=== PATIENT | female | born 1965 | race Caucasian/White ===

== ENCOUNTER → 2018-03-21 21:23 | Outpatient (CLI) | payer OTHER, SELFPAY ==
[2018-03-21 23:37] LABS: Chlamydia Trachomatis by PCR Negative (Negative); Neisserai gonorrhoeae by PCR Negative (Negative); Probe Check PASS; Sample Adequacy Control PASS; Specimen Processing Control PASS
== END ==
PROVIDERS: Visit Provider Nurse Practitioner
DX: Z20.2 Contact with and (suspected) exposure to infections with a predominantly sexual mode of transmission (principal)
CPT/HCPCS: 87491; 87591

== ENCOUNTER → 2019-06-18 21:10 | Outpatient (CLI) | payer OTHER, SELFPAY ==
[2019-06-18 16:57] VITALS: BMI 27.2
[2019-06-18 23:03] LABS: Chlamydia Trachomatis by PCR Negative (Negative); Neisserai gonorrhoeae by PCR Negative (Negative); Probe Check PASS; Sample Adequacy Control PASS; Specimen Processing Control PASS
== END ==
PROVIDERS: Referring Provider Nurse Practitioner; Visit Provider Nurse Practitioner
DX: N89.8 Other specified noninflammatory disorders of vagina (principal)
CPT/HCPCS: 87491; 87591

== ENCOUNTER → 2021-01-01 09:54 | Outpatient (CLI) | payer BC, SELFPAY ==
[2020-05-19 19:33] VITALS: BMI 27.9
[2021-01-01 12:30] LABS: Erythrocyte Sedimentation Rate 2 mm/hr (0-30)
[2021-01-01 12:33] LABS: Absolute Lymphocyte Count 1.34 X10^3/uL (0.83-4.51); Absolute Neutrophil Count 2.5 X10^3/uL (2.0-7.7); Basophil# 0.03 X10^3/uL; Basophil% 0.7 % (0-1); Eosinophil# 0.13 X10^3/uL; Eosinophils% 2.9 % (0-5); Hematocrit 42.7 % (37-47); Hemoglobin 13.7 g/dL (12.0-15.0); Lymphocyte # 1.34 X10^3/ul (0.83-4.51); Mean Corp Hgb Conc 32.1 g/dL (32-36); Mean Corpuscular Hgb 28.1 pg (27.0-32.0); Mean Corpuscular Volume 87.7 fL (81-99); Mean Platelet Vol. 12.2 fl (6.2-12.0); Monocyte# 0.43 X10^3/uL; Monocyte% 9.6 % (0-10); NRBC Flagged by Analyzer 0 % (0-5); Neutrophil # 2.52 X10^3/uL (2.7-7.7); Neutrophil % 56.6 % (47-70); Platelet Count 214 K/mm3 (150-450); RBC Distribution Width SD 41.9 fl (35.1-43.9); Red Blood Count 4.87 M/mm3 (4.2-5.4); White Blood Count 4.5 K/mm3 (4.4-11.0)
[2021-01-01 12:35] LABS: Color, Urine Straw (Yellow); Glucose, Dipstick Normal (Normal); Ketone-Dipstick Negative (Negative); Leukocyte Esterase-Dipstick Negative /ul (Negative); Nitrite-Dipstick Negative (Negative); Occult Blood-Urine Negative /ul (Negative); Protein-Dipstick Negative (Negative); Urine Bilirubin Dipstick Negative (Negative); Urine Clarity Clear (Clear); Urine Urobilinogen Normal (Normal)
[2021-01-01 12:49] LABS: Protein, Urine (Random) < 6.0 mg/dL (<11.9)
[2021-01-01 13:08] LABS: ALB/GLOB Ratio 1.3 RATIO (0.9-2.4); AST(SGOT) 22 U/L (15-37); Alanine Aminotransfer ALT/SGPT 38 U/L (13-56); Albumin, Serum 4.3 g/dL (3.2-5.0); Alkaline Phosphatase 103 U/L (45-117); Anion Gap 6 (5-15); BUN 11 mg/dL (7-18); BUN/Creat Ratio 12.7 RATIO (10-20); CRP < 2.90 mg/L (0.0-3.0); Calcium,Total 9.3 mg/dL (8.5-10.1); Chloride 105 mmol/L (98-107); Creatinine, Serum 0.87 mg/dL (0.55-1.02); EST Glomerular Filtration Rate 72 mL/min (>60); Est Glom Filt Rate - Afr Amer 87 mL/min (>60); Globulin 3.4 g/dL (2.2-4.2); Glucose 93 mg/dL (74-106); Potassium 3.9 mmol/L (3.5-5.1); Protein, Total 7.7 g/dL (6.4-8.2); Rheumatoid Factor < 10.0 IU/mL (<15); Sodium Level 139 mmol/L (136-145)
[2021-01-01 13:34] LABS: Hepatitis B Surface Antibody Non-Reactive; Hepatitis B Surface Antigen Non-Reactive (Nonreactive); Hepatitis C Antibody Non-Reactive (Nonreactive)
[2021-01-02 14:08] LABS: Anti-Centromere B Ab <0.2 AI (0.0-0.9); Anti-Jo <0.2 AI (0.0-0.9); Anti-Scleroderma-70 AB <0.2 AI (0.0-0.9); RNP Ab <0.2 AI (0.0-0.9); SJOGREN'S Anti-SS-A test < 0.2 AI (0.0-0.9); SJOGREN'S Anti-SS-B test < 0.2 AI (0.0-0.9); Smith Ab <0.2 AI (0.0-0.9)
[2021-01-03 10:04] LABS: ANTINUCLEAR ANTIBODIES DIRECT Negative (Negative); Anti-dsDNA Ab <1 IU/mL (0-9)
[2021-01-06 04:14] LABS: Complement C3 143 mg/dL (82-167)
[2021-01-06 11:38] LABS: CCP IgG Antibodies 5 units (0-19)
== END ==
PROVIDERS: PCP Family Medicine; Referring Provider Internal Medicine Rheumatology; Visit Provider Internal Medicine Rheumatology
DX: M06.4 Inflammatory polyarthropathy (principal); G43.909 Migraine, unspecified, not intractable, without status migrainosus; A60.00 Herpesviral infection of urogenital system, unspecified; I10 Essential (primary) hypertension; E78.5 Hyperlipidemia, unspecified; K21.9 Gastro-esophageal reflux disease without esophagitis; F41.9 Anxiety disorder, unspecified
CPT/HCPCS: 36415; 80053; 81002; 82570; 84156; 85025; 85652; 86038; 86140; 86160; 86200; 86225; 86235; 86431; 86706; 86803; 87340

== ENCOUNTER → 2023-09-25 | Outpatient (CLI) | payer BC, SELFPAY ==
--- OUTSIDE RECORDS SUMMARY | 2023-09-25 23:11 | XMS RPT_ITS | CCD ---
Author Name Unknown Address [address] [place] [address] Organization [facility] Care Team Providers Care Group Segment Consultant Name Role Phone Susan Rosado Primary Care Provider SUSAN ROSADO Attending Unavailable SUSAN ROSADO Referring Unavailable LAKSHMI, SUSAN Primary Care Unavailable LAKSHMI, SUSAN Referring Unavailable LAKSHMI, SUSAN Primary Care Unavailable DEEPALI MARTÍNEZ Attending Unavailable DEEPALI MARTÍNEZ Referring Unavailable LAKSHMI, SUSAN Primary Care Unavailable LAKSHMI, SUSAN Attending Unavailable LAKSHMI, SUSAN Primary Care Unavailable LAKSHMI, SUSAN Attending Unavailable LAKSHMI, SUSAN Primary Care Unavailable LAKSHMI, SUSAN Attending Unavailable LAKSHMI, SUSAN Primary Care Unavailable LAKSHMI, SUSAN Attending Unavailable LAKSHMI, SUSAN Primary Care Unavailable Allergies Allergy Classification Reported Allergen(s) Allergy Type Date of Onset Reaction(s) Facility (18 sources) Ampicillin Drug Allergy 12-26-2014 [place], [place] (18 sources) Ibuprofen Drug Allergy 12-26-2014 Nausea Only [place] Medications Current Medications Medication Drug Class(es) Dates Sig (Normalized) Sig (Original) naproxen sodium 220 mg oral tablet (1 source) Nonsteroidal Anti-inflammatory Drug take 1 tablet by mouth twice daily at mealtime naproxen sodium (ANAPROX) 220 MG tablet Take 220 mg by mouth 2 times daily (with meals) 0 Active omeprazole 40 mg delayed release oral capsule (15 sources) Proton Pump Inhibitor Start: 02-09-2023 End: 06-19-2023 take 1 capsule by mouth once daily before breakfast omeprazole (PriLOSEC) [address] capsule Take 1 capsule (40 mg) by mouth every morning (before breakfast). 30 capsule 2 06/19/2023 Active rosuvastatin calcium 10 mg oral tablet (19 sources) HMG-CoA Reductase Inhibitor Start: 10-21-2022 End: 04-19-2023 take 1 tablet by mouth once daily rosuvastatin (Crestor) 10 MG tablet Indications: Mixed hyperlipidemia TAKE 1 TABLET BY MOUTH ONCE DAILY 90 tablet 1 04/19/2023 Active Problems Active Problems Problem Classification Problem Date Documented Da te Episodic/Chronic Anxiety disorders (20 sources) Anxiety; Translations: [Anxiety disorder, unspecified] Onset: 03-28-2018 03-28-2018 Chronic Disorders of lipid metabolism (20 sources) Mixed hyperlipidemia; Translations: [Mixed hyperlipidemia] Onset: 03-06-2017 03-06-2017 Chronic Essential hypertension (20 sources) Essential hypertension; Translations: [Essential (primary) hypertension] Onset: 05-11-2022 05-11-2022 Chronic Headache; including migraine (20 sources) Migraine; Translations: [Migraine, unspecified, not intractable, without status migrainosus] Onset: 01-22-2015 01-22-2015 Chronic Intestinal infection (2 sources) Viral intestinal infection, unspecified; Translations: [Viral intestinal infection, unspecified] Onset: 09-12-2023 Episodic Mood disorders (20 sources) Moderate major depression, single episode; Translations: [Recurrent major depressive episodes] Onset: 03-28-2018 Resolved: 05-11-2022 03-28-2018 Chronic Nonmalignant breast conditions (9 sources) Lump in upper outer quadrant of left breast; Translations: [Unspecified lump in the left breast, upper outer quadrant] Onset: 01-05-2023 01-05-2023 Episodic Other gastrointestinal disorders (2 sources) Other constipation; Translations: [Other constipation] Onset: 04-24-2022 Episodic Other screening for suspected conditions (not mental disorders or infectious disease) (3 sources) Patient encounter status; Translations: [Encounter for screening for diabetes mellitus] Onset: 08-24-2023 08-24-2023 Episodic Other skin disorders (7 sources) Inflamed seborrheic keratosis; Translations: [Inflamed seborrheic keratosis] Onset: 08-24-2023 08-24-2023 Episodic Other skin disorders (2 sources) Inflamed seborrheic keratosis; Translations: [Inflamed seborrheic keratosis] Onset: 08-24-2023 Episodic Other upper respiratory disease (18 sources) Allergic rhinitis due to pollen; Translations: [Allergic rhinitis due to pollen] Onset: 03-06-2017 03-06-2017 Chronic Unclassified (2 sources) Procedure; Translations: [Procedure] Onset: 08-30-2023 Unclassified (2 sources) Medication Check; Translations: [Medication Check] Onset: 02-09-2023 Unclassified (2 sources) Health Maintenance; Translations: [Health Maintenance] Onset: 02-09-2023 Viral infection (20 sources) Herpes simplex type 2 infection; Translations: [Herpesviral infection, unspecified] Onset: 11-13-2019 11-13-2019 Episodic Past or Other Problems Problem Classification Problem Date Documented Da te Episodic/Chronic Hemorrhoids (18 sources) Thrombosed external hemorrhoids; Translations: [Perianal venous thrombosis] Onset: 01-25-2017 01-25-2017 Episodic Inflammatory diseases of female pelvic organs (17 sources) Bacterial vaginosis; Translations: [Acute vaginitis] Onset: 11-13-2019 Resolved: 05-11-2022 11-13-2019 Episodic Mood disorders (13 sources) Mood disorders Onset: 02-09-2023 Resolved: 08-23-2023 02-09-2023 Neoplasms of unspecified nature or uncertain behavior (18 sources) Neoplasm of uncertain behavior of head; Translations: [Neoplasm of uncertain behavior of other specified sites] Onset: 01-22-2015 01-22-2015 Episodic Other female genital disorders (18 sources) Cervical intraepithelial neoplasia grade 1; Translations: [Low grade squamous intraepithelial lesion on cytologic smear of cervix (LGSIL)] Onset: 04-15-2015 07-22-2015 Episodic Other gastrointestinal disorders (19 sources) Chronic constipation; Translations: [Other constipation] Onset: 03-12-2015 03-12-2015 Episodic Other non-traumatic joint disorders (16 sources) Joint stiffness; Translations: [Stiffness of unspecified joint, not elsewhere classified] Onset: 09-21-2020 09-21-2020 Episodic Other skin disorders (16 sources) Multiple skin tags; Translations: [Other hypertrophic disorders of the skin] Onset: 03-18-2021 03-18-2021 Episodic Residual codes; unclassified (16 sources) At risk of sexually transmitted infection ; Translations: [High risk heterosexual behavior] Onset: 08-07-2020 08-07-2020 Episodic Results Test Name Value Interpretation Reference Range Facil ity Vital Signs Date Time Vital Sign Value Performing Clinician Faci lity 08-24-2023 11:28-0500 Diastolic blood pressure 81 mm[Hg] Susan Rosado MD Work Phone: [facility] 08-24-2023 11:28-0500 Heart rate 75 /min Susan Rosado MD Work Phone: [facility] 08-24-2023 11:28-0500 Systolic blood pressure 137 mm[Hg] Susan Rosado MD Work Phone: [facility] 08-24-2023 10:55-0500 Body height 167.6 cm Susan Rosado MD Work Phone: [facility] 08-24-2023 10:55-0500 Body mass index (BMI) [Ratio] 27.79 kg/m2 Susan Rosado MD Work Phone: [facility] 08-24-2023 10:55-0500 Body weight 78.11 kg Susan Rosado MD Work Phone: [facility] 08-24-2023 10:55-0500 SaO2% (BldA) [Mass fraction] 93 % Susan Rosado MD Work Phone: [facility] 02-09-2023 14:53-0400 Body height 170.7 cm Susan Rosado MD Work Phone: [facility] 02-09-2023 14:53-0400 Body mass index (BMI) [Ratio] 26.69 kg/m2 Susan Rosado MD Work Phone: [facility] 02-09-2023 14:53-0400 Body weight 77.75 kg Susan Rosado MD Work Phone: [facility] 02-09-2023 14:53-0400 Diastolic blood pressure 82 mm[Hg] Susan Rosado MD Work Phone: [facility] 02-09-2023 14:53-0400 Heart rate 73 /min Susan Rosado MD Work Phone: [facility] 08-03-2023 14:53-0400 SaO2% (BldA) [Mass fraction] 97 % Susan Rosado MD Work Phone: [facility] 02-09-2023 14:53-0400 Systolic blood pressure 137 mm[Hg] Susan Rosado MD Work Phone: [facility] 01-05-2023 13:31-0400 Body height 170.7 cm Deepali Martínez APRN - C MILLED RUBBER TENDER Work Phone: [facility] Encounters Encounter Date Encounter Type Care Provider Facility Start: 09-12-2023 End: 09-12-2023 ambulatory SUSAN LAKSHMI [facility] Start: 09-11-2023 ambulatory Isabel Kiser RN [facility] C linical Communication Start: 09-11-2023 Patient encounter procedure Isabel Kiser RN [facility] Clinical Communication Start: 08-30-2023 End: [facility] Start: 08-30-2023 End: 08-30-2023 Patient encounter procedure Susan Rosado MD Work Phone: [facility] Procedures Date Procedure Procedure Detail Performing Clinician Start: 08-30-2023 Level iv surg pathol ogy gross&microscopic exam Susan Rosado MD Work Phone: Start: 08-24-2023 Lipid 1996 panel - S akil or Plasma Susan Rosado MD Work Phone: Start: 07-20-2023 Us breast uni real t margarito with image limited Susan Rosado MD Work Phone: Start: 07-20-2023 End: 07-20-2023 Mammography Susan Rosado MD Work Phone: Start: 01-05-2023 Us breast uni real t margarito with image limited Deepali Martínez SENIOR RESEARCH CONSULTANT - FACILITY COORDINATOR Work Phone: Start: 06-15-2022 Mammography Deepali malagon SENIOR RESEARCH CONSULTANT - FACILITY COORDINATOR Work Phone: Start: 06-07-2022 Lipid 1996 panel - S akil or Plasma Deepali Martínez SENIOR RESEARCH CONSULTANT - FACILITY COORDINATOR Work Phone: Start: 05-10-2022 Microscopic observat ion [Identifier] in Cervix by Cyto stain Deepali Martínez APRN - FACILITY COORDINATOR Work Phone: Start: 03-29-2021 Microscopic observat ion [Identifier] in Cervix by Cyto stain Susan Rosado MD Work Phone: Start: 05-26-2014 Uriel corona MD Work Phone: Plan of Treatment Date Care Activity Detail Author Start: 08-24-2028 Lipid panel Lipid Panel [facility] Start: 06-07-2027 Lipid panel Lipid Panel [facility] Start: 01-24-2027 DTaP/Tdap/Td vaccine (2 - Td or Tdap) DTaP/Tdap/Td vaccine (2 - Td or Tdap) [facility] Work Phone: Start: 01-24-2027 DTaP/Tdap/Td vaccine (2 - Td) DTaP/Tdap/Td vaccine (2 - Td) [place] Start: 01-24-2027 DTaP/Tdap/Td Vaccine s (2 - Td or Tdap) DTaP/Tdap/Td Vaccines (2 - Td or Tdap) [facility] Start: 05-10-2025 Screening for malign ant neoplasm of cervix [facility] Start: 03-25-2025 Screening for malign ant neoplasm of cervix Cervical cancer screen [place] Start: 08-23-2024 Zoster Vaccines (1 of 2) Zoste r Vaccines (1 of 2) [facility] Immunizations Immunization Date Immunization Notes Care Provider Fa cilidavie 04-19-2019 influenza, injectabl e, quadrivalent, preservative free Susan Rosado [facility] 04-19-2019 influenza virus vaccine, unspecified formulation Deepali Martínez APRN - FACILITY COORDINATOR Work Phone: [facility] 01-24-2017 tetanus toxoid, redu lety diphtheria toxoid, and acellular pertussis vaccine, adsorbed Susan Rosado [facility] 04-16-2014 Influenza Vaccine, unspecified formulation Susan Rosado [place] 04-16-2014 influenza virus vaccine, unspecified formulation Susan Rosado [facility] 04-16-2014 influenza, seasonal, injectable Deepali Martínez SENIOR RESEARCH CONSULTANT - FACILITY COORDINATOR Work Phone: [facility] Payers Date Payer Category Payer Unknown BCBS [place] - [place] P PO [id number] 2019-Present [address] [place] [address] [id number] 2019 Unknown ANTHEM BLUE CROS S ANTHEM BLUE CROSS [id number] 2019-Present [address] [place] [address] Commercial [id number] 2019 Unknown [id number] 2015 Unknown [employer] M [employer]UAL [address] xxxxxxxxxxxx 2015-Present [phone] [address] [place] [address] xxxxxxxxxxxx [id number] Social History Date Type Detail Facility Start: 03-13-2019 End: 04-28-2022 Tobacco smoking status NHIS Never smoker [place] Start: 03-13-2019 End: 08-23-2023 Alcohol intake No [place] Start: 1965 Sex Assigned At Not on file [place] Start: 04-01-2020 End: 04-28-2022 Tobacco use and exposure Never used [place], [place] Start: 04-01-2020 End: 03-29-2021 Alcohol intake Current non-drinker of alcohol (finding) [place] Start: 03-24-2020 End: 03-25-2021 History SDOH Alcohol Frequency 1 [place] Start: 03-24-2020 End: 03-25-2021 History SDOH Financial 5 [place] Start: 03-24-2020 End: 03-25-2021 History SDOH Transport Med 2 [facility] [place] [place] Start: 03-29-2021 End: 08-23-2023 Alcohol intake [facility] Work Phone: Start: 09-18-2020 History SDOH Physica l Activity MPS 3 [facility] Work Phone: Start: 06-15-2022 Alcohol intake Ex-drinker (finding) [facility] Start: 12-26-2022 End: 02-09-2023 Exposure to SARS-CoV-2 (event) Not sure [facility] Start: 02-09-2023 End: 08-29-2023 Alcohol intake Current drinker of alcohol (finding) [facility] How often to you hav e a drink containing alcohol? 2-4 times a month [facility] How many standard dr inks containing alcohol do you have on a typical day? 1 or 2 [facility] How often do you hav e 6 or more drinks on 1 occasion? Never [facility] How hard is it for y ou to pay for the very basics like food, housing, medical care, and heating Not hard at all [facility] (I/We) worried [facility] (my/our) food would run out before (I/we) got money to buy more. Never true [facility] In the past 12 month s, was there a time when you were not able to pay the mortgage or rent on time? No [facility] Start: 02-09-2023 Alcohol Comment moderate [facility] How hard is it for y ou to pay for the very basics like food, housing, medical care, and heating Hard [facility] Start: 08-23-2023 Alcohol Comment once per month [facility] Goals Date Patient Goal Desired Activity /State Clinical Notes 02-09-2023 to 09-11-2023 Telephone Encounter - Isabel Kiser RN - 09/11/2023 3:23 PM ESTTelephone Encounter - Isabel Kiser RN - 09/11/2023 3:23 PM Keila Mcbride MA - 08/30/2023 2:00 PM EST Note Date & Type Note Facility 09-11-2023 Telephone encount er Note S: Patient spoke with [facility] nurse regarding vomiting, body aches, chills. B: Onset of symptoms/concern began this morning. A: Patient has thrown up about 7 times today, having weakness, body aches, chills, possible fever. Has not taken temperature. No abdominal pain currently or diarrhea. Patient is currently drinking water and Propel, and is staying down so far. Patient requests an appt for tomorrow. R: Appt made with Dr. Rosado for 09/11 at 1:30p. Insurance verified with patient as [place]. Patient will wear a mask to appt; bring photo ID, insurance card, meds; and arrive 10 minutes early. Discussed small sips of room temperature water or sports drinks, wait until she knows she isn't going to vomit before drinking a few more sips, wait in between. Advised to start eating bland foods, crackers, after about 4 hours of not vomiting. Patient understands care advice. No further needs at this time. Patient instructed to call back with new or worsening symptoms. Reason for Disposition SEVERE vomiting (e.g., 6 or more times/day) (Exception: Patient sounds well, is drinking liquids, does not sound dehydrated, and vomiting has lasted less than 24 hours.) Protocols used: [id number] 09-11-2023 Miscellaneous Notes Formattin g of this note might be different from the original. S: Patient spoke with [facility] nurse regarding vomiting, body aches, chills. B: Onset of symptoms/concern began this morning. A: Patient has thrown up about 7 times today, having weakness, body aches, chills, possible fever. Has not taken temperature. No abdominal pain currently or diarrhea. Patient is currently drinking water and Propel, and is staying down so far. Patient requests an appt for tomorrow. R: Appt made with Dr. Rosado for 09/11 at 1:30p. Insurance verified with patient as [place]. Patient will wear a mask to appt; bring photo ID, insurance card, meds; and arrive 10 minutes early. Discussed small sips of room temperature water or sports drinks, wait until she knows she isn't going to vomit before drinking a few more sips, wait in between. Advised to start eating bland foods, crackers, after about 4 hours of not vomiting. Patient understands care advice. No further needs at this time. Patient instructed to call back with new or worsening symptoms. Reason for Disposition SEVERE vomiting (e.g., 6 or more times/day) (Exception: Patient sounds well, is drinking liquids, does not sound dehydrated, and vomiting has lasted less than 24 hours.) Protocols used: [id number] documented in this encounter [facility] 08-30-2023 Note Procedure note: Infl denise seborrheic keratosis Consent was obtained, both lesions were identified and anesthetized with 2% lidocaine after being prepped in sterile fashion. Both were removed by shave biopsy and electrocautery was used to obtain hemostasis. Both sent for pathology patient will be informed. She was instructed to keep her biopsy sites clean and dry and covered with Band-Aids with antibiotic ointment for couple of days. [facility] 08-30-2023 Evaluation + Plan note Associated Problem(s): Keratosis, inflamed seborrheic Procedure note: Inflamed seborrheic keratosis Consent was obtained, both lesions were identified and anesthetized with 2% lidocaine after being prepped in sterile fashion. Both were removed by shave biopsy and electrocautery was used to obtain hemostasis. Both sent for pathology patient will be informed. She was instructed to keep her biopsy sites clean and dry and covered with Band-Aids with antibiotic ointment for couple of days. [facility] 08-30-2023 Miscellaneous Notes Associate d Problem(s): Keratosis, inflamed seborrheic Procedure note: Inflamed seborrheic keratosis Consent was obtained, both lesions were identified and anesthetized with 2% lidocaine after being prepped in sterile fashion. Both were removed by shave biopsy and electrocautery was used to obtain hemostasis. Both sent for pathology patient will be informed. She was instructed to keep her biopsy sites clean and dry and covered with Band-Aids with antibiotic ointment for couple of days. documented in this encounter [facility] 08-30-2023 History of Presen t illness Narrative Patient verified by last name and date of . Images from the original note were not included. 08/30/2023 Jane Calles (: 1965) is a 57 y.o. female , Established patient, here for evaluation of the following chief complaint(s): Procedure (Biopsy right breast and mid chest) ASSESSMENT/PLAN: 1. Keratosis, inflamed seborrheic Assessment & Plan: Procedure note: Inflamed seborrheic keratosis Consent was obtained, both lesions were identified and anesthetized with 2% lidocaine after being prepped in sterile fashion. Both were removed by shave biopsy and electrocautery was used to obtain hemostasis. Both sent for pathology patient will be informed. She was instructed to keep her biopsy sites clean and dry and covered with Band-Aids with antibiotic ointment for couple of days. Orders: - Tissue exam - Tissue exam Follow up if symptoms worsen or fail to improve. SUBJECTIVE/OBJECTIVE: HPI -Jane comes in today for inflamed seborrheic keratosis on her right breast that she would like to have removed and she also has a lesion in the middle of her chest just right of midline. Review of Systems There were no vitals filed for this visit. Physical Exam 1.3 cm raised rough irritated lesion on the right breast lateral aspect. 6 mm raised to color round lesion on the middle of her chest just right of midline An electronic signature was used to authenticate this note. Susan Rosado MD 08/30/2023 3:24 PM documented in this encounter [facility] 08-24-2023 Evaluation + Plan note Associated Problem(s): Anxiety Remission, continue Zoloft 200 mg daily [facility] 08-24-2023 Evaluation + Plan note Associated Problem(s): Mixed hyperlipidemia Controlled, continue rosuvastatin 10 mg daily [facility] 08-24-2023 Miscellaneous Notes Associate d Problem(s): Anxiety Remission, continue Zoloft 200 mg daily Associated Problem(s): Mixed hyperlipidemia Controlled, continue rosuvastatin 10 mg daily Associated Problem(s): Severe episode of recurrent major depressive disorder, without psychotic features (HCC) Remission, continue Zoloft 100 mg twice 2 a day Associated Problem(s): HSV-2 infection Stable, Valtrex as needed Associated Problem(s): Keratosis, inflamed seborrheic Stable, schedule removal Associated Problem(s): Chronic constipation Stable, continue OTC laxatives as needed. Associated Problem(s): Essential hypertension Blood pressure was initially elevated, recheck was normal, can continue low-sodium diet documented in this encounter [facility] 08-24-2023 Evaluation + Plan note Associated Problem(s): Severe episode of recurrent major depressive disorder, without psychotic features (HCC) Remission, continue Zoloft 100 mg twice 2 a day [facility] 08-24-2023 Evaluation + Plan note Associated Problem(s): HSV-2 infection Stable, Valtrex as needed [facility] 08-24-2023 Evaluation + Plan note Associated Problem(s): Keratosis, inflamed seborrheic Stable, schedule removal [facility] 08-24-2023 Evaluation + Plan note Associated Problem(s): Chronic constipation Stable, continue OTC laxatives as needed. [facility] 08-24-2023 Evaluation + Plan note Associated Problem(s): Essential hypertension Blood pressure was initially elevated, recheck was normal, can continue low-sodium diet [facility] 08-24-2023 History of Presen t illness Narrative Patient verified by last name and date of . Images from the original note were not included. 08/24/2023 Jane Calles (: 1965) is a 57 y.o. female , Established patient, here for evaluation of the following chief complaint(s): Annual Exam, Health Maintenance (Jane declines Hep B vaccine/COVID vaccine/Zoster/Flu, declines HIV+Hep C screens since she donates blood to [facility] regularly, had MMR vaccine as a child), Blood Work, and Suspicious Skin Lesion (Pt has a mole on breast she would like to see if this can be scheduled to be removed at a later date) ASSESSMENT/PLAN: 1. Annual physical exam 2. Essential hypertension Assessment & Plan: Blood pressure was initially elevated, recheck was normal, can continue low-sodium diet 3. Chronic constipation Assessment & Plan: Stable, continue OTC laxatives as needed. 4. Mixed hyperlipidemia Assessment & Plan: Controlled, continue rosuvastatin 10 mg daily Orders: - Lipid panel 5. Anxiety Assessment & Plan: Remission, continue Zoloft 200 mg daily 6. Severe episode of recurrent major depressive disorder, without psychotic features (HCC) Assessment & Plan: Remission, continue Zoloft 100 mg twice 2 a day 7. HSV-2 infection Assessment & Plan: Stable, Valtrex as needed 8. Screening for diabetes mellitus - Comprehensive metabolic panel 9. Keratosis, inflamed seborrheic Assessment & Plan: Stable, schedule removal Follow up in about 6 months (around 02/22/2024). SUBJECTIVE/OBJECTIVE: [facility] -Jane comes in today for an annual exam, she should have been coming in for a well female exam but she was told that she did not need a Pap test for 5 years which is not right because she has a history of abnormal Pap test. The only complaint she has is that she has some skin lesions he would like removed 1 on her right breast and 1 on her mid chest. Blood pressure was up slightly today we will recheck that prior to discharge. She has no other complaints at this time, see ROS. Review of Systems Constitutional: Negative for chills and fever. Respiratory: Negative for shortness of breath. Cardiovascular: Negative for chest pain and palpitations. Gastrointestinal: Negative for abdominal pain, blood in stool, constipation and diarrhea. Genitourinary: Negative for dyspareunia, dysuria, frequency, hematuria and urgency. Neurological: Negative for weakness and numbness. Psychiatric/Behavioral: Negative for dysphoric mood. The patient is not nervous/anxious. Vitals: 08/24/23 1055 08/24/23 1128 BP: (!) 141/86 137/81 Pulse: 80 75 SpO2: 93% Weight: 172 lb 3.2 oz (78.1 kg) Height: 5' 6 (1.676 m) Physical Exam Vitals and nursing note reviewed. Constitutional: General: She is not in acute distress. Appearance: Normal appearance. HENT: Head: Normocephalic. Right Ear: Tympanic membrane, ear canal and external ear normal. Left Ear: Tympanic membrane, ear canal and external ear normal. Mouth/Throat: Mouth: Mucous membranes are moist. Pharynx: Oropharynx is clear. Eyes: Extraocular Movements: Extraocular movements intact. Pupils: Pupils are equal, round, and reactive to light. Neck: Vascular: No carotid bruit. Cardiovascular: Rate and Rhythm: Normal rate and regular rhythm. Heart sounds: Normal heart sounds. No murmur heard. Pulmonary: Effort: Pulmonary effort is normal. Breath sounds: Normal breath sounds. Abdominal: General: Bowel sounds are normal. Palpations: Abdomen is soft. Musculoskeletal: General: Normal range of motion. Cervical back: Normal range of motion. Lymphadenopathy: Cervical: No cervical adenopathy. Skin: General: Skin is warm and dry. Neurological: General: No focal deficit present. Mental Status: She is alert and oriented to person, place, and time. Psychiatric: Mood and Affect: Mood normal. An electronic signature was used to authenticate this note. Susan Rosado MD 08/24/2023 4:06 PM documented in this encounter [facility] 07-19-2023 Telephone encount er Note Prescription Request: Last medication check: 02/09/23 Last physical exam: 05/10/22 Next scheduled appointment: 08/17/23 Last date of refill on this medication 01/18/23 90 day 1 refill [facility] 07-19-2023 Miscellaneous Notes Formattin g of this note might be different from the original. Prescription Request: Last medication check: 02/09/23 Last physical exam: 05/10/22 Next scheduled appointment: 08/17/23 Last date of refill on this medication 01/18/23 90 day 1 refill documented in this encounter [facility] 06-19-2023 Telephone encount er Note Prescription Request: Last medication check: 02/09/23 Last physical exam: 05/10/22 Next scheduled appointment: 08/17/23 Last date of refill on this medication 03/20/23 1 month 2 refills [facility] 06-19-2023 Miscellaneous Notes Formattin g of this note might be different from the original. Prescription Request: Last medication check: 02/09/23 Last physical exam: 05/10/22 Next scheduled appointment: 08/17/23 Last date of refill on this medication 03/20/23 1 month 2 refills documented in this encounter [facility] 04-19-2023 Telephone encount er Note Rx sent. Follow up as scheduled. [facility] 04-19-2023 Miscellaneous Notes Formattin g of this note might be different from the original. Rx sent. Follow up as scheduled. Prescription Request: Last medication check: 02/09/23 Last physical exam: 05/10/23 Next scheduled appointment: 08/17/23 Last date of refill on this medication 10/21/22 documented in this encounter [facility] 04-19-2023 Telephone encount er Note Prescription Request: Last medication check: 02/09/23 Last physical exam: 05/10/23 Next scheduled appointment: 08/17/23 Last date of refill on this medication 10/21/22 [facility] 03-20-2023 Telephone encount er Note Prescription Request: Last medication check: 02/09/23 Last physical exam: 05/10/22 Next scheduled appointment: 08/17/23 Last date of refill on this medication 02/09/23 30 days 2 refills [facility] 03-20-2023 Miscellaneous Notes Formattin g of this note might be different from the original. Prescription Request: Last medication check: 02/09/23 Last physical exam: 05/10/22 Next scheduled appointment: 08/17/23 Last date of refill on this medication 02/09/23 30 days 2 refills documented in this encounter [facility] 02-10-2023 Evaluation + Plan note Associated Problem(s): Severe episode of recurrent major depressive disorder, without psychotic features (HCC) Remission, continue Zoloft 200 mg daily [facility] 02-10-2023 Evaluation + Plan note Associated Problem(s): Mixed hyperlipidemia Controlled, continue rosuvastatin 10 mg daily [facility] 02-10-2023 Evaluation + Plan note Associated Problem(s): Anxiety Remission, continue Zoloft 200 mg daily [facility] 02-10-2023 Miscellaneous Notes Associate d Problem(s): Severe episode of recurrent major depressive disorder, without psychotic features (HCC) Remission, continue Zoloft 200 mg daily Associated Problem(s): Mixed hyperlipidemia Controlled, continue rosuvastatin 10 mg daily Associated Problem(s): Anxiety Remission, continue Zoloft 200 mg daily Associated Problem(s): HSV-2 infection Stable, continue Valtrex as needed Associated Problem(s): Essential hypertension Controlled, currently on no medications documented in this encounter [facility] 02-10-2023 Miscellaneous Notes Associate d Problem(s): Severe episode of recurrent major depressive disorder, without psychotic features (HCC) Remission, continue Zoloft 200 mg daily Associated Problem(s): Mixed hyperlipidemia Controlled, continue rosuvastatin 10 mg daily Associated Problem(s): Anxiety Remission, continue Zoloft 200 mg daily Associated Problem(s): HSV-2 infection Stable, continue Valtrex as needed Associated Problem(s): Essential hypertension Controlled, currently on no medications documented in this encounter [facility] 02-10-2023 Evaluation + Plan note Associated Problem(s): HSV-2 infection Stable, continue Valtrex as needed [facility] 02-10-2023 Evaluation + Plan note Associated Problem(s): Essential hypertension Controlled, currently on no medications [facility] 02-09-2023 History of Presen t illness Narrative Patient verified by last name and date of . Images from the original note were not included. 02/09/2023 Jane Calles (: 1965) is a 57 y.o. female , Established patient, here for evaluation of the following chief complaint(s): Hyperlipidemia, Migraine, Anxiety, Depression, Hypertension, Medication Check (6 month), and Health Maintenance (Hep b vaccine- refuse/Hiv and hep c screening- refuse/Covid vaccine- not done/Mmr vaccine- done as child/Shingles vaccine- refuse/Colonoscopy- done at 48 repeat 10 yrs ) ASSESSMENT/PLAN: 1. Essential hypertension Assessment & Plan: Controlled, currently on no medications Follow up in about 6 months (around 08/12/2023). SUBJECTIVE/OBJECTIVE: HPI -Jane comes in today for 6-month follow-up on her hypertension, HSV infection, anxiety/depression and hyperlipidemia. She had a outbreak of HSV on her buttocks a couple weeks ago that has since resolved other than that she seems to be doing well on her current medications. Review of Systems Constitutional: Negative for chills and fever. Respiratory: Negative for shortness of breath. Cardiovascular: Negative for chest pain and palpitations. Gastrointestinal: Negative for abdominal pain, blood in stool, constipation and diarrhea. Genitourinary: Negative for dyspareunia, dysuria, frequency, hematuria and urgency. Neurological: Negative for weakness and numbness. Psychiatric/Behavioral: Negative for dysphoric mood. The patient is not nervous/anxious. Vitals: 02/09/23 1453 BP: 137/82 Pulse: 73 SpO2: 97% Weight: 171 lb 6.4 oz (77.7 kg) Height: 5' 7.2 (1.707 m) Physical Exam Vitals and nursing note reviewed. Constitutional: General: She is not in acute distress. Appearance: Normal appearance. HENT: Head: Normocephalic. Right Ear: Tympanic membrane, ear canal and external ear normal. Left Ear: Tympanic membrane, ear canal and external ear normal. Mouth/Throat: Mouth: Mucous membranes are moist. Pharynx: Oropharynx is clear. Eyes: Extraocular Movements: Extraocular movements intact. Pupils: Pupils are equal, round, and reactive to light. Neck: Vascular: No carotid bruit. Cardiovascular: Rate and Rhythm: Normal rate and regular rhythm. Heart sounds: Normal heart sounds. No murmur heard. Pulmonary: Effort: Pulmonary effort is normal. Breath sounds: Normal breath sounds. Abdominal: General: Bowel sounds are normal. Palpations: Abdomen is soft. Musculoskeletal: General: Normal range of motion. Cervical back: Normal range of motion. Lymphadenopathy: Cervical: No cervical adenopathy. Skin: General: Skin is warm and dry. Neurological: General: No focal deficit present. Mental Status: She is alert and oriented to person, place, and time. Psychiatric: Mood and Affect: Mood normal. An electronic signature was used to authenticate this note. Susan Rosado MD 02/10/2023 5:35 AM documented in this encounter [facility] 02-09-2023 History of Presen t illness Narrative Patient verified by last name and date of . Images from the original note were not included. 02/09/2023 Jane Calles (: 1965) is a 57 y.o. female , Established patient, here for evaluation of the following chief complaint(s): Hyperlipidemia, Migraine, Anxiety, Depression, Hypertension, Medication Check (6 month), and Health Maintenance (Hep b vaccine- refuse/Hiv and hep c screening- refuse/Covid vaccine- not done/Mmr vaccine- done as child/Shingles vaccine- refuse/Colonoscopy- done at 48 repeat 10 yrs ) ASSESSMENT/PLAN: 1. Essential hypertension Assessment & Plan: Controlled, currently on no medications 2. HSV-2 infection Assessment & Plan: Stable, continue Valtrex as needed 3. Anxiety Assessment & Plan: Remission, continue Zoloft 200 mg daily 4. Severe episode of recurrent major depressive disorder, without psychotic features (HCC) Assessment & Plan: Remission, continue Zoloft 200 mg daily 5. Mixed hyperlipidemia Assessment & Plan: Controlled, continue rosuvastatin 10 mg daily Follow up in about 6 months (around 08/12/2023). SUBJECTIVE/OBJECTIVE: FIDEL Wagner comes in today for 6-month follow-up on her hypertension, HSV infection, anxiety/depression and hyperlipidemia. She had a outbreak of HSV on her buttocks a couple weeks ago that has since resolved other than that she seems to be doing well on her current medications. Review of Systems Constitutional: Negative for chills and fever. Respiratory: Negative for shortness of breath. Cardiovascular: Negative for chest pain and palpitations. Gastrointestinal: Negative for abdominal pain, blood in stool, constipation and diarrhea. Genitourinary: Negative for dyspareunia, dysuria, frequency, hematuria and urgency. Neurological: Negative for weakness and numbness. Psychiatric/Behavioral: Negative for dysphoric mood. The patient is not nervous/anxious. Vitals: 02/09/23 1453 BP: 137/82 Pulse: 73 SpO2: 97% Weight: 171 lb 6.4 oz (77.7 kg) Height: 5' 7.2 (1.707 m) Physical Exam Vitals and nursing note reviewed. Constitutional: General: She is not in acute distress. Appearance: Normal appearance. HENT: Head: Normocephalic. Right Ear: Tympanic membrane, ear canal and external ear normal. Left Ear: Tympanic membrane, ear canal and external ear normal. Mouth/Throat: Mouth: Mucous membranes are moist. Pharynx: Oropharynx is clear. Eyes: Extraocular Movements: Extraocular movements intact. Pupils: Pupils are equal, round, and reactive to light. Neck: Vascular: No carotid bruit. Cardiovascular: Rate and Rhythm: Normal rate and regular rhythm. Heart sounds: Normal heart sounds. No murmur heard. Pulmonary: Effort: Pulmonary effort is normal. Breath sounds: Normal breath sounds. Abdominal: General: Bowel sounds are normal. Palpations: Abdomen is soft. Musculoskeletal: General: Normal range of motion. Cervical back: Normal range of motion. Lymphadenopathy: Cervical: No cervical adenopathy. Skin: General: Skin is warm and dry. Neurological: General: No focal deficit present. Mental Status: She is alert and oriented to person, place, and time. Psychiatric: Mood and Affect: Mood normal. An electronic signature was used to authenticate this note. Susan Rosado MD 02/14/2023 7:09 AM documented in this encounter [facility] [place] [facility]* Diagnosis Essential hypertension- Primary Unspecified essential hypertension [facility] Diagnosis Essential hypertension- Primary Unspecified essential hypertension HSV-2 infection Herpes simplex without mention of complication Anxiety Anxiety state, unspecified Severe episode of recurrent major depressive disorder, without psychotic features (HCC) Mixed hyperlipidemia [facility] [place] [facility]* Diagnosis Mixed hyperlipidemia [facility] [place] [facility]* Diagnosis Mass of left breast, unspecified quadrant [facility] [place] [facility]* Diagnosis Annual physical exam- Primary Routine general medical examination at a health care facility Essential hypertension Unspecified essential hypertension Chronic constipation Unspecified constipation Mixed hyperlipidemia Anxiety Anxiety state, unspecified Severe episode of recurrent major depressive disorder, 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 Herpes simplex without mention of complication Screening for diabetes mellitus Keratosis, inflamed seborrheic Inflamed seborrheic keratosis [facility] [place] [facility]* Diagnosis Keratosis, inflamed seborrheic- Primary Inflamed seborrheic keratosis [facility] [place] [facility]* Diagnosis Keratosis, inflamed seborrheic- Primary Inflamed seborrheic keratosis documented in this encounter [facility] Advance Directives No Advanced Directives Records FoundDocuments on File Type Date 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 Advance Directives and Living Will Power of Shredder Tender Documents on File Type Date 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 ACP-Advance Directive ACP-Power of Shredder Tender Summary Purpose Family History No Family History Records FoundNo Family History Records Found Additional Source Comments INFORMATION SOURCE (unrecogn ized section and content) DATE CREATED AUTHOR AUTHOR'S ORGANIZ ATION 09/13/2023 [facility] Care Teams (unrecognized sec tion and content) Group Segment Consultant Relationship Specialty Start Date End Date Susan Rosado MD [address] [facility] [place] [address] PCP - General Family Medicine 04/28/22 Group Segment Consultant Relationship Specialty Start Date End Date Susan Rosado MD [address] [facility] [place] [address] PCP - General Family Medicine 04/28/22 Group Segment Consultant Relationship Specialty Start Date End Date Susan Rosado MD [address] [facility] [place] [address] PCP - General Family Medicine 04/28/22 Group Segment Consultant Relationship Specialty Start Date End Date Susan Rosado MD [address] [facility] [place] [address] PCP - General Family Medicine 04/28/22 Group Segment Consultant Relationship Specialty Start Date End Date Susan Rosado MD [address] [facility] [place] [address] PCP - General Family Medicine 04/28/22 Group Segment Consultant Relationship Specialty Start Date End Date Susan Rosado MD [address] [facility] [place] [address] PCP - General Family Medicine 04/28/22 Group Segment Consultant Relationship Specialty Start Date End Date Susan Rosado MD [place] [address] PCP - General Family Medicine 04/28/22 Group Segment Consultant Relationship Specialty Start Date End Date Susan Rosado MD [facility] [place] [address] PCP - General Family Medicine 04/28/22 Group Segment Consultant Relationship Specialty Start Date End Date Susan Rosado [place] [address] PCP - General Family Medicine 04/28/22 Group Segment Consultant Relationship Specialty Start Date End Date Susan Rosado [place] [address] PCP - General Family Medicine 04/28/22 Reason for Visit (unrecogniz ed section and content) Reason Comments Med Refill Reason Comments Annual Exam Health Maintenance Jane declines Hep B vaccine/COVID vaccine/Zoster/Flu, declines HIV+Hep C screens since she donates blood to [place] regularly, had MMR vaccine as a child Blood Work Suspicious Skin Lesion Pt has a mole on breast she would like to see if this can be scheduled to be removed at a later date Reason Comments Procedure Biopsy right breast and mid chest Reason Onset Date Comments Vomiting 09/11/2023 FOR RECORDS PERTAINING TO PATIENTS WHO ARE OR HAVE BEEN ENROLLED IN A CHEMICAL DEPENDENCY/SUBSTANCEABUSE PROGRAM, SOME INFORMATION MAY BE OMITTED. This clinical summary was aggregated from multiple sources. Caution should be exercised in using it in the provision of clinical care. This summary normalizes information from multiple sources, and as a consequence, information in this document may materially change the coding, format and clinical context of patient data. In addition, data may be omitted in some cases. CLINICAL DECISIONS SHOULD BE BASED ON THE PRIMARY CLINICAL RECORDS. [facility]. provides no warranty or guarantee of the accuracy or completeness of information in this document.
== END | disposition home or self-care (01) ==
PROVIDERS: PCP Nurse Practitioner; Visit Provider Nurse Practitioner
DX: N30.90 Cystitis, unspecified without hematuria (principal); R35.0 Frequency of micturition
CPT/HCPCS: 87077; 87086; 87088; 87186